=== PATIENT | female | born 1995 | race Caucasian/White ===

== ENCOUNTER 2023-09-11 21:38 | Emergency (ER) | payer OTHER, SELFPAY ==
[2023-09-11 21:40] VITALS: BP 129/83; PULSE 92; RESP 16; TEMP 36.6; O2SAT 100; BMI 24.7
--- NOTE | 2023-09-11 23:09 | RAD_ITS ---
STUDY: X-RAY CHEST REASON FOR EXAM: Female, 28 years old. chest pain TECHNIQUE: Single AP portable view of the chest. COMPARISON: None. FINDINGS: The lungs are clear and expanded. There is no demonstrated pleural abnormality. Normal size heart. Normal mediastinum and katia. Normal visualized pulmonary arteries. Normal visualized aortic arch and descending thoracic aorta. Normal visualized thoracic spine. Normal visualized ribs, clavicles, and shoulders. There is no demonstrated abnormality of the visualized soft tissue structures of the upper abdomen. RAD/Chest 1 View (Portable) IMPRESSION: Normal x-ray examination of the chest. Electronically Signed: Jayy Barr MD at 23:24 [facility] ,
[2023-09-11 23:11] LABS: Absolute Lymphocyte Count 2.27 X10^3/uL (0.83-4.51); Absolute Neutrophil Count 5.1 X10^3/uL (2.0-7.7); Basophil# 0.04 X10^3/uL; Basophil% 0.5 % (0-1); Eosinophil# 0.08 X10^3/uL; Hematocrit 38.8 % (37-47); Hemoglobin 13.3 g/dL (12.0-15.0); Lymphocyte # 2.27 X10^3/ul (0.83-4.51); Lymphocyte % 28.7 % (19-41); Mean Corp Hgb Conc 34.3 g/dL (32-36); Mean Corpuscular Hgb 32.1 pg (27.0-32.0); Mean Corpuscular Volume 93.7 fL (81-99); Mean Platelet Vol. 10.5 fl (6.2-12.0); Monocyte# 0.43 X10^3/uL; Monocyte% 5.4 % (0-10); NRBC Flagged by Analyzer 0 % (0-5); Neutrophil # 5.07 X10^3/uL (2.7-7.7); Platelet Count 213 K/mm3 (150-450); RBC Distribution Width CV 11.9 % (11.6-14.6); RBC Distribution Width SD 41.3 fl (35.1-43.9); Red Blood Count 4.14 M/mm3 (4.2-5.4); White Blood Count 7.9 K/mm3 (4.4-11.0)
[2023-09-11 23:30] LABS: Anion Gap 5 (5-15); BUN 15 mg/dL (7-18); BUN/Creat Ratio 21.5 RATIO (10-20); Calcium,Total 9.6 mg/dL (8.5-10.1); Chloride 108 mmol/L (98-107); EST Glomerular Filtration Rate 108 mL/min (>60); Est Glom Filt Rate - Afr Amer 130 mL/min (>60); Estimated Creatinine Clearance 100.75 ml/min; Glucose 93 mg/dL (74-106); Potassium 3.9 mmol/L (3.5-5.1); Sodium Level 139 mmol/L (136-145); Troponin-I HS (w/2H Reflex) 3 pg/mL (3.0-54.0)
[2023-09-12] VITALS: RESP 16
[2023-09-12 00:36] LABS: D-Dimer Quantitative (DVT/PE) < 0.27 FEU/ug/m (0.27-0.49)
[2023-09-12 01:00] VITALS: RESP 16
--- NOTE | 2023-09-12 01:00 | EX.ED.DYSGE1 ---
HPI History of Present Illness Chief Complaint: Chest Pain Informant: patient and spouse/S.O. Narrative Narrative: Patient is a 28-year-old female with no significant past medical history. She states that she has had constant left-sided chest pain for the past 2 to 3 days. She denies any history of cardiac disease at a young age in the family and she denies any history of hypertension hyperlipidemia diabetes or smoking/tobacco use. She also denies any recent travel surgery or history of DVT/PE. She states there is no excessive activity or trauma to prior to the pain beginning either. She states that now she has pain that is worse with inspiration and as the pain has persisted and worsened and she presents for evaluation [facility] Home Medications NK 09/11/23 [History Last Taken Unknown] Allergy/AdvReac Type Severity Reaction Status Date / Time No Known Allergies Allergy Verified 09/11/23 21:42 Social History Smoking Status: Never smoker ROS ROS ED Constitutional Constitutional ED: Denies chills or fever(s) Eyes Eyes: Denies change in vision ENT ENT ED: Denies sore throat Cardiovascular Cardiovascular: Reports chest pain; Denies palpitations or racing heartbeat Respiratory/Chest Respiratory/Chest: Denies cough or dyspnea Gastrointestinal Gastrointestinal: Denies abdominal pain, diarrhea, nausea or vomiting Genitourinary Genitourinary ED: Denies dysuria Musculoskeletal Musculoskeletal: Denies back pain or myalgias Integumentary Denies rash Neurologic Neurologic: Denies headache(s) Hematologic/Lymphatic Hematologic/Lymphatic: Denies easy bleeding or easy bruising EXAM Physical Exam Const Vital Signs: 09/11/23 21:40 09/11/23 23:08 09/11/23 23:08 Temperature 97.8 F Temperature Source Temporal Pulse Rate 92 Respiratory Rate 16 Respiratory Effort Normal Non-Labored Blood Pressure 129/83 H Blood Pressure Mean 98 Pulse Ox 100 Oxygen Delivery Method Room Air Room Air 09/12/23 00:00 09/12/23 01:00 Temperature Temperature Source Pulse Rate Respiratory Rate 16 16 Respiratory Effort Blood Pressure Blood Pressure Mean Pulse Ox Oxygen Delivery Method Positive well nourished and well developed General Appearance ED: well developed HEENT HEENT Narrative: Normocephalic atraumatic Eyes PERRL and EOMs intact bilaterally Neck supple and no JVD Chest Wall palpation of chest normal Chest Narrative: No bony deformity or crepitance noted Resp normal respiratory effort and clear to auscultation bilaterally Cardio regular rate and regular rhythm Rate: other Other Details: Heart is regular rate and rhythm without murmurs rubs or gallops Radial and carotid pulses are equal and symmetric GI normal to inspection, nondistended, normoactive bowel sounds, non-tender, non-distended and no masses Auscultation: normoactive bowel sounds Palpation: soft Extremity normal to inspection Extremity Narrative: No asymmetric edema no pitting edema negative Homans' sign bilaterally Neuro oriented x3, CN's II-XII intact bilaterally and no sensory deficits noted Sensorium / Orientation: alert Motor Exam: strength 5/5 throughout Psych mental status grossly normal Skin no rashes or lesions noted Skin Narrative: No overlying soft tissue changes to suggest trauma or infection MDM MDM MDM Narrative Medical decision making narrative: Patient presented to the ER with stable vitals and is low risk for acute coronary syndrome. However with her report of chest pain differential diagnosis is for ACS versus pneumonia versus pneumothorax versus PE. Therefore basic blood work was obtained as well as chest x-ray. Chest x-ray revealed no acute lung pathology troponin is normal at 3 and as is been constant for multiple days there is no need for delta. D-dimer is also normal for her age which goes against a PE or dissection. Therefore at this time as exam does not suggest an obvious cause of her pain such as cellulitis or abscess or shingles and workup reveals no signs of acute coronary syndrome or lung pathology she is otherwise safe for discharge. History & Record Review Discussion w/independent historian: Patient and Significant other Lab Data Attestation: I reviewed the patient's lab results. Labs: Laboratory Results - last 24 hr 09/11/23 09/12/23 23:05 00:04 WBC 7.9 RBC 4.14 L Hgb 13.3 Hct 38.8 MCV 93.7 MCH 32.1 H MCHC 34.3 RDW Std Deviation 41.3 RDW Coeff of Corina 11.9 Plt Count 213 MPV 10.5 Immature Gran % (Auto) 0.400 Neut % (Auto) 64.0 Lymph % (Auto) 28.7 [place] % (Auto) 5.4 Eos % (Auto) 1.0 Baso % (Auto) 0.5 Absolute Neuts (auto) 5.1 Absolute Lymphs (auto) 2.27 Nucleated RBC % 0 D-Dimer Quant (PE/DVT) < 0.27 L Sodium 139 Potassium 3.9 Chloride 108 H Carbon Dioxide 26.0 Anion Gap 5 BUN 15 Creatinine 0.70 Estim Creat Clear Calc 100.75 Est GFR (MDRD) Af Amer 130 Est GFR (MDRD) Non-Af 108 BUN/Creatinine Ratio 21.5 H Glucose 93 Calcium 9.6 Troponin I High Sens 3 Radiography Diagnostic Testing: Clinical Impression(s) from Imaging Studies Chest X-Ray 09/11/23 23:09 IMPRESSION: Normal x-ray examination of the chest. Electronically Signed: Jayy Barr MD at 23:24 EST , Chest x-ray as interpreted by the emergency medicine physician reveals no acute infiltrate pneumothorax pleural effusion or widening of the mediastinum Discharge Plan Triage Chief Complaint: Chest Pain ED Provider: Dakotah Douglass Dx/Rx/DC Orders Clinical Impression: Acute nonspecific chest pain with low risk of coronary artery disease Prescriptions: No Action NK Primary Care Provider: Care Physician,No Primary Referrals: Logan Blackburn MD [Med Staff - Active Staff] - Care Physician,No Primary [Primary Care Provider] - Disposition Disposition: Home, Self Care Discharge Date/Time: 09/12/23 01:06
[2023-09-12 01:09] LABS: Reflex Troponin-HS? (from REC) Y
== END 2023-09-12 01:06 | disposition home or self-care (01) ==
PROVIDERS: Emergency Provider Emergency Medicine; Visit Provider Emergency Medicine
DX: R07.9 Chest pain, unspecified (principal)
CPT/HCPCS: 71045; 80048; 84484; 85025; 85379; 93005; 99284; A4216